=== PATIENT | female | born 1990 | race Caucasian/White ===

== ENCOUNTER 2017-01-10 23:58 | Inpatient (IN) | payer BC, MEDICAID ==
[2017-01-11] MEDS ORDERED: DIPH,PERTUS(ACELL)TETVAC-LF 0.5 ML VIAL IM ONE (00:22)
--- NOTE | 2017-01-11 00:37 | ED ---
Psych HPI - General Chief Complaint: Psychiatric Symptoms Stated Complaint: Mental Health Time Seen by Provider: 01/11/17 00:07 Source: patient Mode of arrival: ambulatory Limitations: no limitations - History of Present Illness Initial Comments: Patient is 26-year-old woman who is brought to the emergency department by EMS after they were called for her suicidal person. The patient states that she has been very depressed and she tried to cut her wrists using a razor blade. The patient is not wanting to be forthcoming regarding the reasons for worsening depression. Patient denies other injuries. MD Complaint: suicidal ideation, feels depressed -: unknown Associated Psychiatric Symptoms: depression, suicidal ideation History of same: No Quality: constant Improves With: none Worsens With: none - Related Data Previous Rx's Medication Instructions Recorded Bacitracin Oint 1 applic TOPICAL BID 30 Days 01/15/17 Ibuprofen [Motrin] 600 mg PO TID 14 Days 01/15/17 Sertraline [Zoloft] 50 mg PO DAILY #30 tab 01/15/17 traZODone HCL [Desyrel] 50 mg PO HS PRN 30 Days 01/15/17 Allergies Allergy/AdvReac Type Severity Reaction Status Date / Time No Known Allergies Allergy Verified 01/11/17 17:51 Review of Systems ROS Statement: Those systems with pertinent positive or pertinent negative responses have been documented in the HPI. ROS Other: All systems not noted in ROS Statement are negative. Constitutional: Denies: fever Respiratory: Denies: cough, dyspnea Cardiovascular: Denies: chest pain, palpitations Gastrointestinal: Denies: abdominal pain, vomiting Musculoskeletal: Denies: back pain Skin: Reports: lesions (Wrist lacerations) Neurological: Denies: headache Psychiatric: Reports: depression, suicidal thoughts. Denies: auditory hallucinations, visual hallucinations, homicidal thoughts Past Medical History Past Medical History: No Reported History History of Any Multi-Drug Resistant Organisms: None Reported Past Surgical History: No Surgical Hx Reported Past Psychological History: No Psychological Hx Reported Smoking Status: Never smoker Past Alcohol Use History: Occasional Past Drug Use History: None Reported - Past Family History Father Family Medical History: No Reported History Additional Family Medical History / Comment(s): Patient has no contact with her father. Mother Family Medical History: Thyroid Disorder Additional Family Medical History / Comment(s): Mother is alive with history of thyroid problems, fibromyalgia Sister(s) Additional Family Medical History / Comment(s): Patient has one half sister recently diagnosed with a brain tumor. Patient does not have any children. Patient has a [id number] daughter with no major medical problems. General Exam Limitations: no limitations General appearance: alert, in no apparent distress Head exam: Present: atraumatic Eye exam: Present: normal appearance. Absent: scleral icterus, conjunctival injection Respiratory exam: Present: normal lung sounds bilaterally. Absent: respiratory distress, wheezes, rales, rhonchi, stridor Cardiovascular Exam: Present: regular rate, normal rhythm, normal heart sounds. Absent: systolic murmur, diastolic murmur, rubs, gallop GI/Abdominal exam: Present: soft. Absent: distended, tenderness, guarding, rebound, rigid Extremities exam: Present: full ROM, normal capillary refill, other ( Lacerations to bilateral wrists.) Neurological exam: Present: alert, oriented X3. Absent: motor sensory deficit Skin exam: Present: warm, dry, intact, normal color. Absent: rash Course Vital Signs 01/11/17 01/11/17 01/11/17 00:08 06:15 12:57 Temperature 98.5 F 98.6 F 98.0 F Pulse Rate 111 H 88 76 Pulse Rate [ Right Brachial] Respiratory 20 18 16 Rate Blood Pressure 142/91 136/82 122/74 Blood Pressure [Right Arm] O2 Sat by Pulse 100 96 98 Oximetry 01/11/17 01/11/17 01/11/17 16:52 17:32 18:08 Temperature 99 F 98.3 F 98.3 F Pulse Rate 77 Pulse Rate [ 84 84 Right Brachial] Respiratory 18 16 16 Rate Blood Pressure 113/61 Blood Pressure 119/69 119/69 [Right Arm] O2 Sat by Pulse 97 Oximetry 01/12/17 01/13/17 01/14/17 06:50 07:11 00:25 Temperature 98.1 F 98.3 F 97.9 F Pulse Rate Pulse Rate [ 72 69 71 Right Brachial] Respiratory 16 16 18 Rate Blood Pressure Blood Pressure 102/57 91/51 123/81 [Right Arm] O2 Sat by Pulse Oximetry 01/15/17 06:34 Temperature 98.2 F Pulse Rate Pulse Rate [ 68 Right Brachial] Respiratory 14 Rate Blood Pressure Blood Pressure 109/63 [Right Arm] O2 Sat by Pulse Oximetry Procedures - Laceration Laceration #3 Consent Obtained: verbal consent Indication: laceration Site: upper extremity Description: linear Depth: simple, single layer Anesthetic Used: lidocaine 1% Anesthesia Technique: local infiltration Type of Sutures: nylon Size of Sutures: 5-0 Number of Sutures: 20 Technique: simple, interrupted, running Patient Tolerated Procedure: well, no complications Additional Comments: I have repaired 3 lacerations to the patient's forearm. The laceration to the right forearm is approximately 2.5 cm and is closed with 3 interrupted sutures. There are 2 lacerations to the left forearm. One of these is 3.5 cm long and is closed with 4 sutures, running. The other laceration is approximately 7 cm long and is closed with 13 running sutures. I discussed appropriate suture care and removal, as well as signs symptoms of infection. Medical Decision Making - Lab Data Result diagrams: 01/12/17 09:36 01/12/17 09:36 Lab Results 01/11/17 01/11/17 01/11/17 Range/Units 15:43 15:43 15:43 Urine Color Light Yellow Urine Appearance Clear (Clear) Urine pH 6.0 (5.0-8.0) Ur Specific [place] 1.005 (1.001-1.035) Urine Protein Negative (Negative) Urine Glucose (UA) Negative (Negative) Urine Ketones Negative (Negative) Urine Blood Negative (Negative) Urine Nitrite Negative (Negative) Urine Bilirubin Negative (Negative) Urine Urobilinogen <2.0 (<2.0) mg/dL Ur Leukocyte Esterase Negative (Negative) Urine HCG, Qual Not Detected (Not Detectd) Urine Opiates Screen Not Detected (NotDetected) Ur Oxycodone Screen Not Detected (NotDetected) Urine Methadone Screen Not Detected (NotDetected) Ur Propoxyphene Screen Not Detected (NotDetected) Ur Barbiturates Screen Not Detected (NotDetected) U Tricyclic Antidepress Not Detected (NotDetected) Ur Phencyclidine Scrn Not Detected (NotDetected) Ur Amphetamines Screen Not Detected (NotDetected) U Methamphetamines Scrn Not Detected (NotDetected) U Benzodiazepines Scrn Not Detected (NotDetected) Urine Cocaine Screen Not Detected (NotDetected) U Marijuana (THC) Screen Not Detected (NotDetected) Disposition Clinical Impression: Suicidal ideation, Self-inflicted laceration of wrist Disposition: ADMITTED IP TO THIS [facility] Condition: Stable
[2017-01-11 15:56] LABS: Appearance,Urine Clear (Clear); Bilirubin,Urine Negative (Negative); Glucose,Urine (UA) Negative (Negative); Ketones,Urine Negative (Negative); Leukocyte Esterase,Urine Negative (Negative); Nitrite,Urine Negative (Negative); Protein,Urine Negative (Negative); Specific Gravity,Urine 1.005 (1.001-1.035); UA Billing (MACRO vs. MICRO) CHEM; Urobilinogen,Urine <2.0 mg/dL (<2.0)
[2017-01-11 17:44] VITALS: BMI 19.2
[2017-01-11] MEDS ORDERED: MAGNESIUM HYDROXIDE 2,400 MG/10 ML CUP PO PRN (17:46)
[2017-01-11] MEDS ORDERED: LORazepam 1 MG TAB PO PRN (17:46)
[2017-01-11] MEDS ORDERED: MAG HYDROX/AL HYDROX/SIMETH 30 ML CUP PO PRN (17:46)
[2017-01-11] MEDS ORDERED: ACETAMINOPHEN TAB 325 MG TAB PO PRN (17:46)
[2017-01-11] MEDS: IBUPROFEN 600 MG TAB PO SCH (20:44)
[2017-01-12] MEDS: IBUPROFEN 600 MG TAB PO SCH ×3 (09:24→21:13)
[2017-01-12 09:56] LABS: Basophils % (A) 1 %; CH 30.5; CHCM 33.8; Eosinophils # (A) 0.2 k/uL (0-0.7); Eosinophils % (A) 2 %; HCT 44.4 % (34.0-46.0); HDW 2.45; HGB 14.7 gm/dL (11.4-16.0); Luc # (Auto) 0.14; Luc % (Auto) 2; Lymphocytes # (A) 1.3 k/uL (1.0-4.8); Lymphocytes % (A) 18 %; MCHC 33.1 g/dL (31.0-37.0); MCV 90.6 fL (80.0-100.0); Mean Platelet Volume 6.4; Monocytes # (A) 0.5 k/uL (0-1.0); Monocytes % (A) 7 %; Neutrophils # (A) 5.1 k/uL (1.3-7.7); Neutrophils % (A) 71 %; RDW 13.4 % (11.5-15.5); WBC 7.2 k/uL (3.8-10.6); WBC (Perox) 7.36
[2017-01-12 10:33] LABS: ALT 16 U/L (9-52); AST 20 U/L (14-36); Alkaline Phosphatase 40 U/L (38-126); Anion Gap 14 mmol/L; Bilirubin, Delta 0.3 mg/dL (0.0-0.2); Blood Urea Nitrogen 11 mg/dL (7-17); Calcium 10.3 mg/dL (8.4-10.2); Carbon Dioxide 25 mmol/L (22-30); Chloride 100 mmol/L (98-107); Glucose 116 mg/dL (74-99); Non-African American GFR(MDRD) >60 (>60 ml/min/1.73 sqM); Potassium 3.7 mmol/L (3.5-5.1); Sodium 139 mmol/L (137-145); Total Bilirubin 1.2 mg/dL (0.2-1.3); Total Protein 8.4 g/dL (6.3-8.2)
[2017-01-12] MEDS: BACITRACIN 500 UNIT/GM OINT 28.4 GM TUBE TOPICAL SCH ×2 (10:50→21:12)
[2017-01-12] MEDS: SERTRALINE 50 MG TAB PO SCH (12:56)
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
--- NOTE | 2017-01-12 14:13 | P.CONS ---
History of Present Illness - Reason for Consult Consult date: 01/12/17 Medical management - History of Present Illness This is a 26-year-old female with no primary care physician in no significant past medical history. 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 She states she has felt like a failure and the students are very disrespectful and she does not get response from her coworkers either. She apparently cut bilateral wrists with a razor blade and friend found her and she was brought into [facility] emergency center by EMS for suicidal ideation. She underwent suturing of 3 lacerations in the emergency center with 17 stitches to the left forearm and 3 to the right. Urine drug screen was negative. HCG was not detected. Urinalysis clean. Patient has been admitted to the mental health unit. She states she is not suicidal at this time and feels stupid about what she has done. Review of Systems All systems: negative Constitutional: Denies chills, Denies fever Eyes: denies blurred vision, denies pain Ears, nose, mouth and throat: Denies headache, Denies sore throat Cardiovascular: Denies chest pain, Denies shortness of breath Respiratory: Denies cough Gastrointestinal: Denies abdominal pain, Denies diarrhea, Denies nausea, Denies vomiting Genitourinary: Denies dysuria, Denies hematuria Musculoskeletal: Denies myalgias Integumentary: Reports wounds, Denies pruritus, Denies rash Neurological: Denies numbness, Denies weakness Psychiatric: Reports depression, Reports hopelessness, Reports suicidal ideation , Denies anxiety Endocrine: Denies fatigue, Denies weight change Past Medical History Past Medical History: No Reported History History of Any Multi-Drug Resistant Organisms: None Reported Past Surgical History: No Surgical Hx Reported Past Psychological History: No Psychological Hx Reported Smoking Status: Never smoker Past Alcohol Use History: Occasional Additional Past Alcohol Use History / Comment(s): Patient is a lifelong nonsmoker. She denies any medical marijuana, marijuana, street drug use. She drinks alcohol 2 times weekly Past Drug Use History: None Reported - Past Family History Father Family Medical History: No Reported History Additional Family Medical History / Comment(s): Patient has no contact with her father. Mother Family Medical History: Thyroid Disorder Additional Family Medical History / Comment(s): Mother is alive with history of thyroid problems, fibromyalgia Sister(s) Additional Family Medical History / Comment(s): Patient has one half sister recently diagnosed with a brain tumor. Patient does not have any children. Patient has a ujr-[id number]-gaz daughter with no major medical problems. Medications and Allergies Home Medications Medication Instructions Recorded Confirmed Type No Known Home Medications [No 01/11/17 01/11/17 History Known Home Medications] Allergies Allergy/AdvReac Type Severity Reaction Status Date / Time No Known Allergies Allergy Verified 01/11/17 17:51 Physical Exam Vitals: Vital Signs Temp Pulse Resp BP 01/12/17 06:50 98.1 F 72 16 102/57 01/11/17 18:08 98.3 F 84 16 119/69 01/11/17 17:32 98.3 F 84 16 119/69 Intake and Output 01/11/17 01/12/17 01/12/17 22:59 06:59 14:59 Other: Weight 50.802 kg Gen: This is a 26-year-old female. She is cooperative and appears to be in no acute distress. HEENT: Head is atraumatic, normocephalic. Pupils equal, round. Sclerae is anicteric. NECK: Supple. No JVD. No lymphadenopathy. No thyromegaly. LUNGS: Clear to auscultation. No wheezes or rhonchi. No intercostal retractions. HEART: Regular rate and rhythm. No murmur. ABDOMEN: Soft. Bowel sounds are present. No masses. No tenderness. EXTREMITIES: No pedal edema. No calf tenderness. Dressings in place to the bilateral forearms. NEUROLOGICAL: Patient is awake, alert and oriented x3. Cranial nerves 2 through 12 are grossly intact. Results CBC & Chem 7: 01/12/17 09:36 01/12/17 09:36 Assessment and Plan Plan: 1. Depression with suicidal ideation. Patient admitted to the mental health unit. Continue current plan of care. 2. Self-inflicted lacerations status post suturing. Keep areas clean and dry. 3. No tobacco use. No need for nicotine patch. Impression and plan of care have been directed as dictated by the signing physician. Nila Roe nurse practitioner acting as scribe for signing physician. Time with Patient: Greater than 30
[2017-01-12] MEDS ORDERED: traZODone HCL 50 MG TAB PO SCH (21:00)
[2017-01-13] MEDS: SERTRALINE 50 MG TAB PO SCH (09:37)
[2017-01-13] MEDS: IBUPROFEN 600 MG TAB PO SCH ×3 (09:37→20:48)
[2017-01-13] MEDS: BACITRACIN 500 UNIT/GM OINT 28.4 GM TUBE TOPICAL SCH ×2 (09:37→21:51)
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
[2017-01-14] MEDS: traZODone HCL 50 MG TAB PO PRN ×2 (00:19→21:22)
[2017-01-14] MEDS: IBUPROFEN 600 MG TAB PO SCH ×3 (09:02→21:21)
[2017-01-14] MEDS: SERTRALINE 50 MG TAB PO SCH (09:02)
[2017-01-14] MEDS: BACITRACIN 500 UNIT/GM OINT 28.4 GM TUBE TOPICAL SCH ×2 (09:02→21:24)
--- NOTE | 2017-01-14 13:09 | P.PN ---
Progress Note - Text SUBJECTIVE: I reviewed the medical record, interviewed Ms. Snow and discussed her treatment and treatment plan during team meeting. She spoke with her sister yesterday and he plans to live with her temporarily after discharge. She does not plan to return to work and when she is "feeling better" she will approach her ex-employer about returning to her former job. We again reviewed the events leading up to her suicide attempt. She got the idea of cutting her forearm in the bathtub from watching a cable television show. She denied that she is planned on the action until she drank the Robitussin. When she was "high" she remembered that she had a razor blade in her art kit. She described a disassociative state when she was laying in the bathtub. She believed that she was the bathtub "for a while" before she cut herself because she remembers having to refill the tub with hot water. Again, she talked about an out of body experience where he felt as though she was watching her self cut her arm. She was so intoxicated from the dextromethorphan that she barely remembers her friend Mejia coming into the bathroom. She remembers him calling emergency services and taken out of the bath tub. She also remembers the EMS jostling her out of the bathroom, wrapping her arm briskly and caring her to their vehicle. She completed feeling "a bit" restless since she started Zoloft. OBJECTIVE: She presented as a neatly groomed pale and thin 26-year-old female who was pleasant on approach. She made eye contact and attend to the interview. The laceration on her left forearm was clean, dry and show no evidence of infection. She showed no abnormality of psychomotor activity. Her speech was spontaneous with normal rate, rhythm and volume. Her affect was blunted but stable and appropriate. She denied current suicidal ideation or wishes. She denied feeling hopeless or helpless. 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 She did not express ideas reference, paranoid ideation or delusional thinking. Her thinking was abstract. Associations were coherent and logical. She denied hallucinations and did not appear to be responding to internal stimuli. ASSESSMENT: She appears less depressed, anxious and obsessively ruminating about her former employment. PLAN: Continue inpatient hospitalization due to the seriousness of suicide attempt. Continue Zoloft 50 mg daily and trazodone 50 mg at bedtime when necessary for sleep. transplant worker to coordinate a family meeting with her sister. Encourage the unit participation in therapeutic groups and activities. Evaluate clinical status response to treatment on a daily basis.
[2017-01-15 06:35] VITALS: BP 109/63; PULSE 68; RESP 14; TEMP 98.2
[2017-01-15] MEDS: SERTRALINE 50 MG TAB PO SCH (08:52)
[2017-01-15] MEDS: IBUPROFEN 600 MG TAB PO SCH (08:52)
[2017-01-15] MEDS: BACITRACIN 500 UNIT/GM OINT 28.4 GM TUBE TOPICAL SCH (11:07)
--- NOTE | 2017-01-15 13:12 | P.DS ---
Providers Date of admission: 01/11/17 16:52 Attending physician: Immanuel Pino MD Consults: 01/11/17 17:46 Consult Physician Routine Consulting Provider: Immanuel Barker Consult Reason/Comments: H & P and medical care Do you want consulting provider notified?: Yes Primary care physician: Stated None - Discharge Diagnosis(es) (1) Major depressive disorder with single episode Current Visit: Yes Status: Acute Priority: Medium (2) Self-inflicted laceration of wrist Current Visit: Yes Status: Acute Priority: High (3) Suicidal ideation Current Visit: Yes Status: Acute Priority: Medium Hospital Course: Ms Snow is a 26-year-old single female admitted to the psychiatric unit voluntarily following an attempted suicide by cutting her forearms. She described increasing depression over the last 12 months that became worse in July when she broke up with her boyfriend. She also complained of increasing stress from work. 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 She feels overwhelmed by the demands of her work. She has 2 classes both with 24 students and she is training a student aide. She does not feel she is respected by the mostly male students and staff. She complained of ongoing criticism and conflict with her new meat supervisor. She is unhappy at work but does not have an alternative that would allow her to provide for herself and her daughter. She denied that she had been thinking about suicide. The day of the suicide attempt she drank a "small" bottle of Robitussin because she had heard that Robitussin can help with sleep and anxiety. She described a disassociative state where "I was watching myself." She began cutting her forearms when she was lying in her bathtub filled with warm water. She remembers hearing her telephone but did get out of the bathtub or call for assistance. A friend happened to arrive at her home. She did not lock the door and he walked into the house looking for her. He found her in the bathtub. The water was bloody. He called emergency services. In the emergency room she had a 2.5 cm laceration on her right forearm closed with 3 sutures. She had 2 lacerations on her left for him. One was 3.5 cm long and closed with 4 sutures the other was 7 cm long and close with 13 sutures. She completed the Brasher Depression Inventory. The total score was 25 consistent with moderate symptoms of depression. She identified sadness, pessimism, past failure, loss of pleasure, guilty feelings, punishment feelings, self dislike, self criticalness, crying, agitation, loss of interest, indecisiveness, worthlessness, loss of energy, changes in sleeping pattern, changes in appetite and tiredness or fatigue. She also described a general sense of anxiety that contributed to her fatigue, restlessness and impaired concentration. She denied symptoms suggestive of panic attack. She denied obsessions or compulsions. She denied sustained irritability or elevated moods consistent with abelino or hypomania. She denied psychotic symptoms such as auditory or visual hallucinations, ideas of reference, thought insertion, thought broadcasting or thought control. She denied use of drugs to get high, help her sleep or change her mood including marijuana. She drinks approximately 1 bottle of wine every 2-3 days. She denied any friends or family have complained to her about her alcohol use. We admitted her voluntarily to the psychiatric unit under care of this inspector automatic typewriter. We provided a biopsychosocial assessment. The security consultant completed the initial medical history and physical exam and only diagnosed a self-inflicted laceration to her forearms. Nursing staff changed her bandages daily. The lacerations showed no signs of infection. We started Zoloft for the treatment of depressive symptoms. She experiences some restlessness with initial doses. She talked quite a bit about her problems and concerns leading to the suicide attempt. She regretted her action and feels guilty for the suicide attempt. She expressed an interest in continuing outpatient treatment. The manager social responsibility met with her sister who confirmed that her behavior was out of character. She participated in therapeutic groups and activities. She showed no episodes of behavioral dyscontrol or suicidal behaviors. At the time of discharge she described a marked improvement of remote and denied having thoughts of or suicide. She plans to live with her sister temporarily and follow through with recommended mental health treatment. Patient Condition at Discharge: Stable Plan - Discharge Summary New Discharge Prescriptions: Bacitracin Oint 1 applic TOPICAL BID 30 Days Ibuprofen [Motrin] 600 mg PO TID 14 Days Sertraline [Zoloft] 50 mg PO DAILY #30 tab traZODone HCL [Desyrel] 50 mg PO HS PRN 30 Days PRN Reason: Insomnia Discharge Medication List Bacitracin Oint 1 applic TOPICAL BID 30 Days 01/15/17 [Rx] Ibuprofen [Motrin] 600 mg PO TID 14 Days 01/15/17 [Rx] Sertraline [Zoloft] 50 mg PO DAILY #30 tab 01/15/17 [Rx] traZODone HCL [Desyrel] 50 mg PO HS PRN 30 Days 01/15/17 [Rx] Follow up Appointment(s)/Referral(s): [facility] [Outside] - 1 Week (w/ Huy Fernandez on 01/26/17 @ 12pm w/ Dr. Ford on 03/02/17 @ 3pm) None,Stated [Primary Care Provider] - 01/26/17 12:00 pm (Huy) Patient Instructions/Handouts: Laceration (DC), Depression (DC), Suicide Prevention for Older Adults (DC) Activity/Diet/Wound Care/Special Instructions: No alcohol or street drugs. Take medications as prescribed. Notify the crisis line or your care provider if symptoms worsen. Crisis line no. . Regular diet. Activity as tolerated. You had sutures applied to lacerations in the Emergency room on 01/11/2017. Return to your primary care physical or ER to evaluate for removal of sutures in 7 to 10 days after the date sutures were applied. Discharge Disposition: HOME SELF-CARE
== END 2017-01-15 13:23 | disposition home or self-care (01) | DRG 885 ==
LOC: EC 23:58 → 3MHU 01-11 16:52
PROVIDERS: ADMIT Psychiatry & Neurology Psychiatry; ATTEND Psychiatry & Neurology Psychiatry
PROC: 0HQEXZZ Repair Left Lower Arm Skin, External Approach (ICD-10-PCS; principal; 2017-01-11)
PROC: 0HQDXZZ Repair Right Lower Arm Skin, External Approach (ICD-10-PCS; 2017-01-11)
DX: F32.2 Major depressive disorder, single episode, severe without psychotic features (principal); R45.851 Suicidal ideations; F41.9 Anxiety disorder, unspecified; S61.511A Laceration without foreign body of right wrist, initial encounter; S61.512A Laceration without foreign body of left wrist, initial encounter; Z56.9 Unspecified problems related to employment; Y92.002 Bathroom of unspecified non-institutional (private) residence as the place of occurrence of the external cause; W26.8XXA Contact with other sharp object(s), not elsewhere classified, initial encounter
CPT/HCPCS: 12005; 80053; 80306; 81003; 81025; 82248; 84443; 85025; 90471; 90715; 99285

== ENCOUNTER 2021-12-02 19:30 | Emergency (ER) | payer BC ==
[2021-12-02 19:38] VITALS: TEMP 98.3
--- NOTE | 2021-12-02 21:17 | US ---
EXAMINATION TYPE: US venous doppler duplex LE DATE OF EXAM: 12/02/2021 8:59 PM COMPARISON: NONE CLINICAL HISTORY: recent COVID, , sob. Patient had covid 1 month ago; has since been experien cing SOB, patient is 25 weeks . SIDE PERFORMED: Bilateral TECHNIQUE: The lower extremity deep venous system is examined utilizing real time linear array sonog joshua with graded compression, doppler sonography and color-flow sonography. VESSELS IMAGED: Common Femoral Vein Deep Femoral Vein Greater Saphenous Vein * Femoral Vein Popliteal Vein Small Saphenous Vein * Proximal Calf Veins (* superficial vessels) Right Leg: Negative for DVT Left Leg: Negative for DVT IMPRESSION: No evidence of deep vein thrombosis in both legs.
[2021-12-02 21:19] LABS: Basophils # (A) 0.1 k/uL (0-0.2); Basophils % (A) 0 %; Eosinophils # (A) 0.3 k/uL (0-0.7); Eosinophils % (A) 2 %; HGB 13.3 gm/dL (11.4-16.0); Lymphocytes # (A) 2.6 k/uL (1.0-4.8); Lymphocytes % (A) 20 %; MCH 30.1 pg (25.0-35.0); MCHC 32.5 g/dL (31.0-37.0); MCV 92.6 fL (80.0-100.0); Mean Platelet Volume 7.4; Monocytes # (A) 0.6 k/uL (0-1.0); Monocytes % (A) 5 %; Neutrophils # (A) 9.3 k/uL (1.3-7.7); Neutrophils % (A) 72 %; Platelet Count 300 k/uL (150-450); RBC 4.43 m/uL (3.80-5.40); RDW 13.1 % (11.5-15.5); WBC 12.9 k/uL (3.8-10.6)
[2021-12-02 21:28] LABS: ALT 23 U/L (4-34); AST 28 U/L (14-36); African American GFR (CKD) >90 (>60 ml/min/1.73 sqM); Albumin 3.9 g/dL (3.5-5.0); Alkaline Phosphatase 56 U/L (38-126); Anion Gap 4 mmol/L; Blood Urea Nitrogen 9 mg/dL (7-17); Calcium 9.3 mg/dL (8.4-10.2); Carbon Dioxide 23 mmol/L (22-30); Chloride 106 mmol/L (98-107); Glucose 78 mg/dL (74-99); Non-African American GFR(CKD) >90 (>60 ml/min/1.73 sqM); Potassium 3.7 mmol/L (3.5-5.1); Sodium 133 mmol/L (137-145); Total Bilirubin 0.6 mg/dL (0.2-1.3); Total Protein 7.3 g/dL (6.3-8.2)
--- NOTE | 2021-12-02 21:40 | XR ---
EXAMINATION TYPE: XR chest 2V DATE OF EXAM: 12/02/2021 COMPARISON: NONE HISTORY: Shortness breath TECHNIQUE: 2 views FINDINGS: Heart and mediastinum are normal. Lungs are clear. Diaphragm is normal. Bony thorax appears normal. IMPRESSION: Normal chest.
--- NOTE | 2021-12-02 21:53 | ED ---
SOB HPI - General Chief Complaint: Shortness of Breath Stated Complaint: FRANCO-25 weeks preg. Source: patient, family Mode of arrival: ambulatory Limitations: no limitations - History of Present Illness Initial Comments: Greta is a healthy 31-year-old female currently 25 weeks' single gestation she is following with Dr. Campos. Patient did have COVID-19 last month. Patient reports that for the past couple of weeks she wakes up during the night and feels like she is gasping for air however this resolves after he takes couple deep breaths and she is able to go back to bed. Patient states that she walks for 30 minutes on the treadmill every day prescription of any c hest pain diaphoresis or lightheadedness or shortness of breath when doing this. She doesn't get short of breath with normal daily activities. Patient states she was concerned she may have developed sleep apnea during her however when she discussed her symptoms with her video systems engineer she was advised to follow with the primary care for further evaluation. Patient discussed these symptoms with her primary care who advised her to have a evaluation in the emergency department. - Related Data Previous Rx's Medication Instructions Recorded Bacitracin Zinc Oint 1 applic TOPICAL BID 30 Days 01/15/17 applic Ibuprofen [Motrin] 600 mg PO TID 14 Days tab 01/15/17 Sertraline [Zoloft] 50 mg PO DAILY #30 tab 01/15/17 traZODone HCL [Desyrel] 50 mg PO HS PRN 30 Days tab 01/15/17 Allergies Allergy/AdvReac Type Severity Reaction Status Date / Time No Known Allergies Allergy Verified 12/02/21 19:37 Review of Systems ROS Statement: Those systems with pertinent positive or pertinent negative responses have been documented in the HPI. ROS Other: All systems not noted in ROS Statement are negative. Past Medical History Past Medical History: No Reported History History of Any Multi-Drug Resistant Organisms: None Reported Past Surgical History: No Surgical Hx Reported Past Psychological History: No Psychological Hx Reported Smoking Status: Never smoker Past Alcohol Use History: Occasional Past Drug Use History: None Reported - Past Family History Father Family Medical History: No Reported History Additional Family Medical History / Comment(s): Patient has no contact with her father. Mother Family Medical History: Thyroid Disorder Additional Family Medical History / Comment(s): Mother is alive with history of thyroid problems, fibromyalgia Sister(s) Additional Family Medical History / Comment(s): Patient has one half sister recently diagnosed with a brain tumor. Patient does not have any children. Patient has a [id number] daughter with no major medical problems. General Exam - General Exam Comments Initial Comments: Physical Exam GENERAL: Patient is well-developed and well-nourished. Patient is nontoxic and well-hydrated and is in no distress. HENT: Normocephalic, Atraumatic. EYES: PERRL, EOMI PULMONARY: Unlabored respirations. CARDIOVASCULAR: There is a regular rate and rhythm without any murmurs gallops or rubs. Warm and well perfused extremities ABDOMEN: Gravid abdomen SKIN: Skin is clear with no lesions or rashes and otherwise unremarkable. : Deferred NEUROLOGIC: Patient is alert and oriented x3. Moving all extremities spontaneously MUSCULOSKELETAL: Normal extremities with adequate strength and full range of motion. No lower extremity swelling or edema. No calf tenderness. PSYCHIATRIC: Normal psychiatric evaluation. Limitations: no limitations Course Vital Signs 12/02/21 12/02/21 19:35 20:37 Temperature 98.3 F Pulse Rate 99 Respiratory 18 20 Rate Blood Pressure 137/85 O2 Sat by Pulse 97 Oximetry Procedures - [place] Protocol (Time Out) Nurse: Immanuel Yepez Medical Decision Making - Medical Decision Making Patient care was discussed with her primary care provider prior to patient arrival Upon arrival patient was seen and evaluated this is a very well-appearing 31-year-old female who states she wakes from sleep and feels like she has to gasp for air this then resolved she is able to sleep she has no shortness of b reath with activity or during the day Upon arrival patient is not tachycardic, not hypoxic she's not having chest pain Patient is and did have COVID last month but is a nonsmoker with no fam umu history of blood clotting disorder Labs were obtained, white count is 12.9 which is normal for , there is no anemia. Troponin is not elevated BNP is not elevated additional signs of hea rt failure. D-dimer is mildly elevated however patient's ultrasound shows no signs of DVT. Patient has no clinical exam findings concerning for PE. I did discuss with the patient risks and benefits of CT scanning, patient is in second trimester so organogenesis is complete however the fetus cannot be completely shielded from radiation. Patient states her primary concern was sleep apnea because of the nighttime predominance of her symptoms. After risk and benefit discussion, patient would prefer discharge home without a computed tomography scan. - Lab Data Result diagrams: 12/02/21 21:14 12/02/21 21:14 Lab Results 12/02/21 12/02/21 12/02/21 Range/Units 21:14 21:14 21:14 WBC 12.9 H (3.8-10.6) k/uL RBC 4.43 (3.80-5.40) m/uL Hgb 13.3 (11.4-16.0) gm/dL Hct 41.0 (34.0-46.0) % MCV 92.6 (80.0-100.0) fL MCH 30.1 (25.0-35.0) pg MCHC 32.5 (31.0-37.0) g/dL RDW 13.1 (11.5-15.5) % Plt Count 300 (150-450) k/uL MPV 7.4 Neutrophils % 72 % Lymphocytes % 20 % Monocytes % 5 % Eosinophils % 2 % Basophils % 0 % Neutrophils # 9.3 H (1.3-7.7) k/uL Lymphocytes # 2.6 (1.0-4.8) k/uL Monocytes # 0.6 (0-1.0) k/uL Eosinophils # 0.3 (0-0.7) k/uL Basophils # 0.1 (0-0.2) k/uL D-Dimer (<0.60) mg/L FEU Sodium 133 L (137-145) mmol/L Potassium 3.7 (3.5-5.1) mmol/L Chloride 106 (98-107) mmol/L Carbon Dioxide 23 (22-30) mmol/L Anion Gap 4 mmol/L BUN 9 (7-17) mg/dL Creatinine 0.58 (0.52-1.04) mg/dL Est GFR (CKD-EPI)AfAm >90 (>60 ml/min/1.73 sqM) Est GFR (CKD-EPI)NonAf >90 (>60 ml/min/1.73 sqM) Glucose 78 (74-99) mg/dL Calcium 9.3 (8.4-10.2) mg/dL Total Bilirubin 0.6 (0.2-1.3) mg/dL AST 28 (14-36) U/L ALT 23 (4-34) U/L Alkaline Phosphatase 56 (38-126) U/L Troponin I <0.012 (0.000-0.034) ng/mL NT-Pro-B Natriuret Pep pg/mL Total Protein 7.3 (6.3-8.2) g/dL Albumin 3.9 (3.5-5.0) g/dL 12/02/21 12/02/21 Range/Units 21:14 21:14 WBC (3.8-10.6) k/uL RBC (3.80-5.40) m/uL Hgb (11.4-16.0) gm/dL Hct (34.0-46.0) % MCV (80.0-100.0) fL MCH (25.0-35.0) pg MCHC (31.0-37.0) g/dL RDW (11.5-15.5) % Plt Count (150-450) k/uL MPV Neutrophils % % Lymphocytes % % Monocytes % % Eosinophils % % Basophils % % Neutrophils # (1.3-7.7) k/uL Lymphocytes # (1.0-4.8) k/uL Monocytes # (0-1.0) k/uL Eosinophils # (0-0.7) k/uL Basophils # (0-0.2) k/uL D-Dimer 0.92 H (<0.60) mg/L FEU Sodium (137-145) mmol/L Potassium (3.5-5.1) mmol/L Chloride (98-107) mmol/L Carbon Dioxide (22-30) mmol/L Anion Gap mmol/L BUN (7-17) mg/dL Creatinine (0.52-1.04) mg/dL Est GFR (CKD-EPI)AfAm (>60 ml/min/1.73 sqM) Est GFR (CKD-EPI)NonAf (>60 ml/min/1.73 sqM) Glucose (74-99) mg/dL Calcium (8.4-10.2) mg/dL Total Bilirubin (0.2-1.3) mg/dL AST (14-36) U/L ALT (4-34) U/L Alkaline Phosphatase (38-126) U/L Troponin I (0.000-0.034) ng/mL NT-Pro-B Natriuret Pep 107 pg/mL Total Protein (6.3-8.2) g/dL Albumin (3.5-5.0) g/dL - EKG Data -: EKG Interpreted by Me EKG Comments: EKG was obtained due to complaint of shortness of breath, EKG was obtained at 2107 rate is 74 rhythm is sinus there is a normal axis, there are normal intervals, there are no acute ST elevations or depressions noted with ischemia, infarction or arrhythmia. Disposition Clinical Impression: Shortness of breath due to in second trimester Disposition: HOME SELF-CARE Condition: Stable Additional Instructions: Follow up with your primary care as well as Dr Campos Return immediately if you develop any sudden change in symptoms, any chest pain, worsening shortness of breath or any new or concerning symptoms Is patient prescribed a controlled substance at d/c from ED?: No Referrals: None,Stated [Primary Care Provider] - 1-2 days
[2021-12-02 23:31] VITALS: BP 128/84; PULSE 96; RESP 18
== END 2021-12-02 23:31 | disposition home or self-care (01) ==
LOC: EC 19:30
DX: O26.892 Other specified pregnancy related conditions, second trimester (principal); R06.02 Shortness of breath; Z3A.25 25 weeks gestation of pregnancy
CPT/HCPCS: 36415; 71046; 80053; 83880; 84484; 85025; 85379; 93005; 93970; 99285

== ENCOUNTER 2022-03-13 06:10 | Inpatient (IN) | payer BC ==
[2022-03-13] MEDS ORDERED: OXYTOCIN 10 UNIT/ML 1 ML VIAL IM PRN (06:32)
[2022-03-13] MEDS ORDERED: TERBUTALINE 1 MG/ML VIAL SQ PRN (06:32)
[2022-03-13] MEDS ORDERED: LIDOCAINE 0.5% (PF) 5 MG/ML (50 ML SDV) SQ PRN (06:32)
[2022-03-13] MEDS ORDERED: METHYLERGONOVINE 0.2 MG/ML 1 ML AMP IM PRN (06:32)
[2022-03-13] MEDS ORDERED: CARBOPROST TROMETHAMINE 250 MCG/ML 1 ML AMP IM PRN (06:32)
[2022-03-13 06:43] LABS: Basophils # (A) 0.1 k/uL (0-0.2); Basophils % (A) 1 %; Eosinophils # (A) 0.2 k/uL (0-0.7); Eosinophils % (A) 1 %; HCT 41.9 % (34.0-46.0); HGB 14.2 gm/dL (11.4-16.0); Lymphocytes # (A) 3.2 k/uL (1.0-4.8); Lymphocytes % (A) 23 %; MCV 91.4 fL (80.0-100.0); Mean Platelet Volume 8.2; Monocytes # (A) 0.7 k/uL (0-1.0); Monocytes % (A) 5 %; Neutrophils # (A) 9.4 k/uL (1.3-7.7); Neutrophils % (A) 69 %; Platelet Count 326 k/uL (150-450); RBC 4.58 m/uL (3.80-5.40); RDW 13.3 % (11.5-15.5); WBC 13.7 k/uL (3.8-10.6)
[2022-03-13] MEDS ORDERED: OXYTOCIN 30 UNITS/500 ML NS 30 UNIT in SALINE 1 500ML.BAG IV SCH (06:45)
[2022-03-13] MEDS: LACTATED RINGERS 1,000 ML IV SCH ×2 (08:09→10:02)
--- NOTE | 2022-03-13 08:33 | P.HPOB ---
History of Present Illness H&P Date: 03/13/22 Chief Complaint: Here for elective induction of labor at 40 and one sevenths weeks' This is a 31-year-old female 2 per 1001 EDC 03/12/2022 at 40 and one sevenths weeks' gestation who presents today for induction with favorable multiparous cervix. Fetus is been active throughout the . She denies vaginal bleeding or fluid leakage. Past history significant for mastitis and depression. Past surgical history is negative. Current medications vitamins daily, baby aspirin daily. ALLERGIES none known. Family history is significant for hypertension, rheumatoid arthritis, fibromyalgia, and thyroid disease. Reproductive history vaginal delivery 2010, 7 lbs. 2 oz. female infant. Social history patient is , she has never been a smoker, she denies alcohol or drug use. history blood type is A+, rubella status immune. Pap smear, VDRL, urine screen, gonorrhea Chlamydia cultures, HIV testing, hepatitis B surface antigen all negative. Rubella nonimmune. Group B strep cultures negative. One-hour Glucola 110. On exam patient is 5 foot 4 inches, 157 pounds, blood pressure 135/88 on admission. General physical exam is within normal limits. Cervix is 3-4 cm dilated, 70% effaced, -1 to -2 station, vertex presentation. Artificial amniorrhexis reveals clear fluid with light flexed of meconium noted. heart rate is consistent with reactive NST. Impression: 40 and one sevenths weeks intrauterine , here for induction of labor, all signs reassuring. Plan: Close maternal and surveillance. Analgesic options reviewed. Oxytocin per hospital protocol. Anticipate normal spontaneous vaginal delivery. Review of Systems Constitutional: Reports as per HPI Past Medical History Past Medical History: No Reported History History of Any Multi-Drug Resistant Organisms: None Reported Past Surgical History: No Surgical Hx Reported Past Anesthesia/Blood Transfusion Reactions: No Reported Reaction Past Psychological History: Depression Smoking Status: Never smoker Past Alcohol Use History: None Reported Past Drug Use History: None Reported - Past Family History Father Family Medical History: No Reported History Additional Family Medical History / Comment(s): Patient has no contact with her father. Mother Family Medical History: Thyroid Disorder Additional Family Medical History / Comment(s): Mother is alive with history of thyroid problems, fibromyalgia Sister(s) Family Medical History: No Reported History Additional Family Medical History / Comment(s): Patient has one half sister recently diagnosed with a brain tumor. Patient has a maq-[id number]-fuc daughter with no major medical problems. Medications and Allergies Home Medications Medication Instructions Recorded Confirmed Type Vit No.179/Iron/Folic 1 tab PO DAILY 03/13/22 03/13/22 History [ Tablet] Allergies Allergy/AdvReac Type Severity Reaction Status Date / Time No Known Allergies Allergy Verified 03/13/22 06:31 Exam Vital Signs Temp Pulse Resp BP Pulse Ox 03/13/22 06:34 98.2 F 100 18 135/88 98 Intake and Output 03/12/22 03/13/22 03/13/22 22:59 06:59 14:59 Other: Weight 71.214 kg See dictation under HPI please Results Result Diagrams: 03/13/22 06:31 Abnormal Lab Results - Last 24 Hours (Table) 03/13/22 Range/Units 06:31 WBC 13.7 H (3.8-10.6) k/uL Neutrophils # 9.4 H (1.3-7.7) k/uL Assessment and Plan Assessment: 40 and one sevenths weeks intrauterine , here for induction of labor, favorable cervix, all signs reassuring. Plan: Continue close maternal and surveillance. Oxytocin per hospital protocol. Analgesic options reviewed. Anticipate normal spontaneous vaginal delivery. Time with Patient: Less than 30
[2022-03-13] MEDS ORDERED: ROPIVACAINE 100 MG, fentaNYL (PF). 200 MCG in SODIUM CHLORIDE 0.9% 76 ML EPIDURAL ONE (11:44)
[2022-03-13] MEDS ORDERED: diphenhydrAMINE 50 MG CAP PO PRN (13:37)
[2022-03-13] MEDS ORDERED: diphenhydrAMINE 25 MG CAP PO PRN (13:37)
[2022-03-13] MEDS ORDERED: LANOLIN CREAM 5 GM TUBE TOPICAL PRN (13:37)
[2022-03-13] MEDS ORDERED: HYDROCORTISONE 2.5% RECTAL CREAM 30 GM TUBE RECTAL PRN (13:37)
[2022-03-13] MEDS ORDERED: diphenhydrAMINE 50 MG/ML 1 ML VIAL IVP PRN ×2 (13:37)
[2022-03-13] MEDS ORDERED: diphenhydrAMINE ELIXIR 25 MG/10 ML CUP PO PRN (13:37)
[2022-03-13] MEDS ORDERED: SIMETHICONE 80 MG CHEWABLE PO PRN (13:37)
[2022-03-13] MEDS ORDERED: BENZOCAINE/MENTHOL SPRAY 1 GM/SPRAY AEROSOL TOPICAL PRN (13:37)
[2022-03-13] MEDS ORDERED: ZOLPIDEM 5 MG TAB PO PRN (13:37)
--- NOTE | 2022-03-13 13:37 | P.PROBDLV ---
Vaginal Delivery Note - . Vaginal Delivery Note: This is a 31-year-old female 2 para 1001 EDC 03/12/2022 at 40 and one sevenths weeks' gestation. Patient presents for induction with favorable multiparous cervix. Blood type A positive, rubella status nonimmune. Please see admitting history and physical for details. Artificial amniorrhexis revealed clear fluid. Oxytocin was started and titrated per hospital protocol. Epidural was placed per her request. Patient became completely dilated at 1218. Perineal body was prepped and draped in usual sterile fashion. She pushed very well in the dorsal lithotomy position. Perineal body was distended, infant's head delivered occiput anterior and he restituted accordingly. The left or anterior shoulder was gently and easily delivered from underneath the pubic symphysis at which time the oropharynx, nasopharynx, and external nares were thoroughly bulb suctioned. Patient was officially delivered of a liveborn male at 1300 hrs. Umbilical cord was doubly clamped and ligated, he was handed to waiting nurses for evaluation where scores of 9 and 10 at one and 5 minutes respectively were given. Placenta delivered spontaneously, it was inspected and noted to be intact with trivascular cord at 1303 hrs. Perineal body was then redraped. Careful inspection of the cervix, vagina, perineum, perirectal, and periclitoral tissues reveals a small first-degree perineal laceration. This was easily repaired in the usual fashion using 3-0 Vicryl suture. Total estimated blood loss 200 mL's. All sponge needle and enhancement counts are correct. Fundus is firm and in the midline, symmetric and 18 week size upon completion of delivery. 's weight is 7 lbs. 9 oz. or 3415 g. They are requesting circumcision further infant son.
[2022-03-13] MEDS: IBUPROFEN 600 MG TAB PO SCH ×2 (14:58→22:58)
[2022-03-13] MEDS: ACETAMINOPHEN TAB 325 MG TAB PO PRN (20:09)
[2022-03-13] MEDS: SENNOSIDES-DOCUSATE SODIUM 1 EACH TAB PO SCH (20:09)
[2022-03-13] MEDS ORDERED: MEASLES-MUMPS-RUBELLA VACC/PF 12,500 UNIT/0.5 ML VIAL SQ ONE (20:24)
[2022-03-14] MEDS: IBUPROFEN 600 MG TAB PO SCH ×4 (04:16→13:02)
[2022-03-14 08:05] VITALS: PULSE 130; RESP 46; TEMP 98.2
[2022-03-14 08:06] VITALS: BP 115/70
[2022-03-14] MEDS: SENNOSIDES-DOCUSATE SODIUM 1 EACH TAB PO SCH (08:58)
[2022-03-14] MEDS: ACETAMINOPHEN TAB 325 MG TAB PO PRN (08:59)
--- NOTE | 2022-03-14 09:40 | P.DS ---
Providers Date of admission: 03/13/22 06:10 Expected date of discharge: 03/14/22 Attending physician: Nicki Campos Primary care physician: Stated None Hospital Course: This is a 31-year-old female 2 para 1001 EDC 03/12/2022 at 40 and one sevenths weeks' gestation who presented yesterday for induction with favorable cervix. was unremarkable, blood type B positive, rubella status nonimmune. Please see my dictated history and physical for details. Artificial amniorrhexis revealed clear fluid with thin specks of meconium. Epidural was placed and oxytocin titrated. Patient went on to deliver a liveborn male with scores of 9 and 10 at one and 5 minutes respectively. weighed 7 lbs. 9 oz. or 3415 g. There was a small first- degree perineal laceration easily repaired. Please see dictated delivery note for details. This morning the patient is doing well. She is voiding, ambulate in, passing flatus without difficulty. Vital signs are stable and she is afebrile. [place] is doing well, circumcision is performed. Patient is judged to be in excellent condition for discharge home. She'll follow-up with me in the office in 6 weeks. I have reminded her no intercourse, tampons or douching. She will use [id number] Advil or Aleve, or Motrin as needed for pain. She will call with any fevers shakes or chills, foul smelling or copious lochia, with the passage of large blood clots, with any pain not alleviated by [id number] products, or indeed with any concerns. Contraceptive options have been discussed and we will discuss this further in the office. Assessment: Doing well day #1 Patient Condition at Discharge: Good Plan - Discharge Summary Discharge Rx Participant: No New Discharge Prescriptions: No Action Vit No.179/Iron/Folic [ Tablet] 1 tab PO DAILY Discharge Medication List Vit No.179/Iron/Folic [ Tablet] 1 tab PO DAILY 03/13/22 [History] Follow up Appointment(s)/Referral(s): Nicki Campos MD [STAFF PHYSICIAN] - 6 Weeks Discharge Disposition: HOME SELF-CARE
== END 2022-03-14 13:30 | disposition home or self-care (01) | DRG 807 ==
LOC: 4FBP 06:10
PROVIDERS: ADMIT Obstetrics & Gynecology; ATTEND Obstetrics & Gynecology
PROC: 0HQ9XZZ Repair Perineum Skin, External Approach (ICD-10-PCS; principal; 2022-03-13)
PROC: 10E0XZZ Delivery of Products of Conception, External Approach (ICD-10-PCS; principal; 2022-03-13)
PROC: 3E0134Z Introduction of Serum, Toxoid and Vaccine into Subcutaneous Tissue, Percutaneous Approach (ICD-10-PCS; 2022-03-13)
PROC: 00HU33Z Insertion of Infusion Device into Spinal Canal, Percutaneous Approach (ICD-10-PCS; 2022-03-13)
PROC: 3E0R3NZ Introduction of Analgesics, Hypnotics, Sedatives into Spinal Canal, Percutaneous Approach (ICD-10-PCS; 2022-03-13)
PROC: 3E033VJ Introduction of Other Hormone into Peripheral Vein, Percutaneous Approach (ICD-10-PCS; 2022-03-13)
PROC: 10907ZC Drainage of Amniotic Fluid, Therapeutic from Products of Conception, Via Natural or Artificial Opening (ICD-10-PCS; 2022-03-13)
DX: O77.0 Labor and delivery complicated by meconium in amniotic fluid (principal); Z37.0 Single live birth; O70.0 First degree perineal laceration during delivery; Z23 Encounter for immunization; Z79.82 Long term (current) use of aspirin; Z79.899 Other long term (current) drug therapy; Z86.19 Personal history of other infectious and parasitic diseases; Z86.59 Personal history of other mental and behavioral disorders
CPT/HCPCS: 85025; 86850; 86900; 86901; 90707

== ENCOUNTER → 2022-08-11 | Outpatient (CLI) | payer BC ==
--- NOTE | 2022-08-12 07:14 | US ---
EXAMINATION TYPE: US thyroid st tissue head/neck DATE OF EXAM: 08/11/2022 COMPARISON: NONE CLINICAL HISTORY: R59.0 LOCALIZED ENLARGED LYMPH NODES. Palpable right neck for 2 months Technique: Scanned within patient's area of concern, right neck, FINDINGS: possible lymph node = 1.6 x 0.7 x 1.7 cm with normal reniform morphology and no evidence of suspicious mass or organizing fluid collection. IMPRESSION: Right neck lymph node which is within normal limits for size. No suspicious masses or or ganizing fluid collections.
== END | disposition home or self-care (01) ==
LOC: RADUSWWP 16:17
PROVIDERS: ATTEND Family Medicine
DX: R59.0 Localized enlarged lymph nodes (principal)
CPT/HCPCS: 76536

== ENCOUNTER → 2023-06-23 | Outpatient (CLI) | payer BC ==
--- NOTE | 2023-06-23 16:00 | CT ---
EXAMINATION TYPE: CT brain wo con DATE OF EXAM: 06/23/2023 COMPARISON: None HISTORY: Chronic frontal headache x10 days. May be possible fall. CT DLP: 1123.10 mGycm. Automated Exposure Control for Dose Reduction was Utilized. TECHNIQUE: CT scan of the head is performed without contrast. FINDINGS: There is no acute intracranial hemorrhage, mass effect, or midline shift identified. The ventricles and sulci are within normal limits in size. The globes are intact and the visualized sin uses are clear. Low density seen within the left basal ganglia may represent prominent for a [place], intraparenchymal cyst or tiny remote lacunar infarct. IMPRESSION: No acute intracranial hemorrhage, mass effect, or midline shift is seen. If symptoms per sist consider MRI.
== END | disposition home or self-care (01) ==
LOC: RADCTMAIN 14:43
PROVIDERS: ATTEND Family Medicine
DX: R51.9 Headache, unspecified (principal)
CPT/HCPCS: 70450

== ENCOUNTER → 2023-07-12 | Outpatient (CLI) | payer BC, OTHER ==
--- NOTE | 2023-07-13 10:17 | MR ---
EXAMINATION TYPE: MR brain wo/w con DATE OF EXAM: 07/12/2023 8:30 PM CLINICAL INDICATION:Female, 32 years old with history of R51.9 HEADACHE, Headaches, Dizziness, Abnorm al CT COMPARISON: CT 06/23/2023 TECHNIQUE: Multi planar, multi sequence imaging was performed through the brain including: T1, T2, In version recovery, susceptibility weighted imaging and gradient echo imaging and Diffusion weighted im aging. The patient was then given intravenous contrast and multi planar, T1 fat-saturation images wer e obtained. IV Contrast: 5.5 cc Gadavist FINDINGS: Posterior pituitary gland height T2 low T1 signal cyst measuring 5 x 5 x 6 mm. No abnormal postcontra st enhancement. Diffusion-weighted imaging shows no evidence of restricted diffusion to suggest acute /subacute infarct. Intracranial arterial flow voids are maintained. Midline structures show no abnorm ality. Choroidal fissure cyst on the left. The susceptibility weighted images do not reveal any evide nce for micro-hemorrhage. After administration of gadolinium, no abnormal enhancement is seen. The bone marrow signal is within normal limits. Paranasal sinuses and mastoid air cells: No significant paranasal sinus disease. Visualized orbits: Orbital contents are intact. IMPRESSION: 5 x 5 x 6 mm cyst within the posterior pituitary gland. Findings favored represent a [place] cleft cys t less likely cystic pituitary adenoma. Follow-up should be performed with pituitary mass protocol. N o additional evidence of intracranial mass, acute/subacute infarct, or abnormal enhancement.
== END | disposition home or self-care (01) ==
LOC: RADMRIMAIN 19:30
PROVIDERS: ATTEND Family Medicine
DX: E23.6 Other disorders of pituitary gland (principal); R51.9 Headache, unspecified; R42 Dizziness and giddiness; R93.0 Abnormal findings on diagnostic imaging of skull and head, not elsewhere classified
CPT/HCPCS: 70553; A9585